=== PATIENT | female | born 1965 | race Caucasian/White ===

== ENCOUNTER 2017-11-21 07:31 | Day surgery (SDC) | payer OTHER ==
[~2017-11-21] VITALS: Ht 165.1 cm; Wt 69.4 kg
--- NOTE | ~2017-11-21 | OR ---
[facility] [address] [place] [address] Draft DATE OF OPERATION: 11/21/2017 SURGEON: Minesh Ortiz MD PREOPERATIVE DIAGNOSIS: Colon screening. POSTOPERATIVE DIAGNOSIS: Normal colon to cecum. PROCEDURE: Total colonoscopy to cecum. ANESTHESIA: Intravenous sedation, fentanyl 150 mcg, Versed 5 mg. INDICATION: This 52-year-old white woman is a patient Dr. Borja. She is referred for screening colonoscopy. She has never had a colonoscopy in the past. She has no family history of colon cancer and no symptoms of bleeding, diarrhea, or constipation. She understands the risks of bleeding, infection, and perforation related to colonoscopy and wished to proceed. FINDINGS: The prep was quite good. Complete colonoscopy was undertaken to the cecum without question. There was no sign of diverticular formation, colitis, or cancer or polyps. DESCRIPTION OF PROCEDURE: The patient was brought to the endoscopy suite and placed in lateral decubitus position and given intravenous sedation to the point of slurred speech and nystagmus. Digital rectal examination was normal. An Olympus video colonoscope was passed in the rectum and manipulated throughout the colon ultimately intubating the cecum itself. The ileocecal valve and appendiceal orifice were normal. The scope was withdrawn from that point and examination throughout undertaken showing no sign of polyps, diverticular formation, colitis, or cancer. Retroflex view was normal. The scope was removed. The patient was taken to recovery room in good condition. CONCLUDING DIAGNOSIS: PATIENT NAME: HARIKA CALDWELL OPERATIVE REPORT DATE OF : 67 REPORT #: [id number] PHYSICIAN: MINESH ORTIZ MD PCP: SAMI LEVY MD REPORT IS CONFIDENTIAL AND NOT TO BE RELEASED WITHOUT AUTHORIZATION [place] [id number] [place] [address] Draft Normal colon. PLAN: Recommend repeat colonoscopy in 10 years or sooner if symptoms including bleeding, diarrhea, or constipation. She will return to the ongoing care of Dr. Borja. MD DOMENICA Mcelroy/JENNAL /[id number] cc: Michael Borja MD Copies: MICHAEL BORJA MD ~ PATIENT NAME: HARIKA CALDWELL OPERATIVE REPORT DATE OF : 67 REPORT #: [id number] PHYSICIAN: MINESH ORTIZ MD PCP: SAMI LEVY MD REPORT IS CONFIDENTIAL AND NOT TO BE RELEASED WITHOUT AUTHORIZATION
[~2017-11-21 07:31] MED LIST: NORETHINDRONE0.35 MG PO
[2017-11-21] MEDS ORDERED: CLARITIN10 M2 PO (07:46)
--- NOTE | 2017-11-21 09:08 | NUR ---
11/21/17 0908 Barbara Browne 0905-PATIENT ARRIVED TO PACU ON 2L NC O2 SAT 99% WEANED TO RA. RR EVEN. PATIENT DROWSY EYES OPEN DENIES PAIN OR NAUSEA. ABDOMEN SOFT ENCOURAGED TO PASS FLATUS.
== END 2017-11-21 09:40 | disposition home or self-care (01) ==
LOC: OPS 07:31 → DS 07:31 → OPS 08:30
PROVIDERS: Surgery
PROC: 0DJD8ZZ Inspection of Lower Intestinal Tract, Via Natural or Artificial Opening Endoscopic (ICD-10-PCS; principal; 2017-11-21 08:30)
DX: Z12.11 Encounter for screening for malignant neoplasm of colon (principal); J45.909 Unspecified asthma, uncomplicated; Z88.2 Allergy status to sulfonamides
CPT/HCPCS: 99153; G0500; J2250; J3010; J7120

== ENCOUNTER 2022-06-24 07:40 | Day surgery (SDC) | payer OTHER ==
[~2022-06-24] VITALS: Ht 165.1 cm; Wt 65.5 kg
[~2022-06-24 07:40] MED LIST changes: +CLARITIN10 M2 PO
[2022-06-24] MEDS ORDERED: MULTIPLE VITAM1 EAC2 PO (08:34)
[2022-06-24] MEDS ORDERED: VITAMIN D350 MC3 PO (08:34)
[2022-06-24] MEDS ORDERED: FISH OIL 1,201200 MG PO (08:35)
[2022-06-24] MEDS ORDERED: CALCIUM 500 MG1 EAC5 PO (08:35)
[2022-06-24] MEDS ORDERED: MELATONIN3 MG PO (08:35)
[2022-06-24] MEDS ORDERED: PROBIOTIC1 EAC5 PO (08:35)
[2022-06-24] MEDS ORDERED: PSEUDOEPHEDRINE30 MG PO (08:36)
[2022-06-24 08:50] VITALS: BP 117/78
--- NOTE | 2022-06-24 11:20 | NUR ---
06/24/22 1120 Sheets,Candi 1048 PT ARRIVED TO PACU ON 6L VIA MASK, PT ASLEEP AND DECREASED BP NOTED. TECHNICAL PLANNER AWARE. 1052 BP MEDICAITON GIVEN PER BLUE SHEET. 1055 BP REMAINS LOW AND MEDICATION GIVEN PER BLUE SHEET. 1056 PT WAKES TO TACTILE STIMULI AND DENIES CONCERN. BP INCREASES. PT REORIENTED TO PACU AND O2 REMOVED. HOB INCREASED. 1105 PT SIPPING WATER AND DENIES NAUSEA. 1111 MD AT BEDSIDE TALKING TO PT. ALL QUESTIONS ANSWERED.
[2022-06-24 11:21] VITALS: BP 120/74
--- NOTE | 2022-06-25 10:49 | OR ---
[facility] [address], [place] [address] Signed DATE OF OPERATION: 06/24/2022 SURGEON: Yue Figueroa DO PREOPERATIVE DIAGNOSES: 1. Vaginal cuff dehiscence. 2. Incidentally noted leukopenia. POSTOPERATIVE DIAGNOSES: 1. Vaginal cuff dehiscence. 2. Incidentally noted leukopenia. PROCEDURE PERFORMED: Repair of vaginal cuff dehiscence. LAW REPORTER: Idalmis King DO ANESTHESIA: MAC. ESTIMATED BLOOD LOSS: 5 mL. FINDINGS: Partial approximately 80% thickness vaginal cuff dehiscence across the full length of the colpotomy was repaired with #0 Vicryl with excellent results. Good apical support. Normal external genitalia with normal clitoris, urethral meatus, bilateral Parmele's, and Bartholin's. Otherwise normal vagina. No other abnormalities noted. COMPLICATIONS: None. INDICATIONS: Mrs. Caldwell is a very pleasant 57-year-old female who presents who initially presented with postmenopausal bleeding. Hysteroscopy D and C was performed that demonstrated complex endometrial hypertrophy with atypia. She is sent to [facility] in [place], [place] for surgery approximately eight weeks ago. Surgery was uncomplicated and the patient reports that no malignancy was found. Her healing was normal and she was seen for an eight week postoperative exam earlier this week. Upon placing the speculum, it Electronically Signed By: YUE FIGUEROA DO (JD) 06/25/22 1049 PATIENT NAME: HARIKA CALDWELL OPERATIVE REPORT DATE OF : 67 REPORT #: [id number] PHYSICIAN: YUE FIGUEROA) PCP: SAMI LEVY MD REPORT IS CONFIDENTIAL AND NOT TO BE RELEASED WITHOUT AUTHORIZATION [facility] [address] [place], [place] [address] Signed was noted that the vaginal cuff was approximately 80% dehisced. Decision was made to recommend revision of vaginal cuff in the OR. Risks, benefits, and alternatives were discussed in detail with the patient. The patient understands and wishes to proceed with the procedure. DESCRIPTION OF PROCEDURE: The patient was taken to the operating room, where time-out was performed to confirm correct patient and correct procedure. MAC anesthesia was adequately established. The patient was prepped and draped in the dorsal lithotomy position with her feet in Yellofin stirrups. ICPs were on, running and no preoperative antibiotics were indicated. Islva catheter was inserted. A weighted speculum was placed in the vagina. The vaginal cuff was evaluated and again partial thickness vaginal cuff dehiscence noted across the full length of the colpotomy. A 0-Vicryl was placed at each corner without difficulty and these were used to provide traction. The colpotomy was examined and found to appear normal with normal vaginal tissue. This was then repaired using 0-Vicryl in a running locked suture. Excellent apical support and hemostasis was appreciated. No evidence of infection or hematoma/seroma. The vagina was irrigated and again found to be hemostatic. The patient was then taken to the PACU in good and stable condition. The patient with incidentally noted leukopenia with WBCs 4.4 today. Manual differential was ordered and pending. We will continue evaluation as an outpatient. Yue Figueroa DO JFavioW/MODL /[id number] Copies: ~ Electronically Signed By: YUE FIGUEROA DO (JD) 06/25/22 1049 PATIENT NAME: HARIKA CALDWELL OPERATIVE REPORT DATE OF : 67 REPORT #: [id number] PHYSICIAN: YUE FIGUEROA DO (JD) PCP: SAMI LEVY MD REPORT IS CONFIDENTIAL AND NOT TO BE RELEASED WITHOUT AUTHORIZATION
== END 2022-06-24 11:37 | disposition home or self-care (01) ==
LOC: OPS 07:40 → DS 07:40 → OPS 10:30 → DS 10:30 → OPS 11:37
PROVIDERS: ATTEND Obstetrics & Gynecology
DX: T81.31XA Disruption of external operation (surgical) wound, not elsewhere classified, initial encounter (principal); Y83.8 Other surgical procedures as the cause of abnormal reaction of the patient, or of later complication, without mention of misadventure at the time of the procedure; D72.819 Decreased white blood cell count, unspecified; Z88.2 Allergy status to sulfonamides; Z79.899 Other long term (current) drug therapy
CPT/HCPCS: 36415; 85007; 85025; 85027; 86850; 86900; 86901; J0131; J1100; J2001; J2704; J7121

== ENCOUNTER 2024-08-27 21:56 | Emergency (ER) | payer OTHER ==
[~2024-08-27] VITALS: Ht 165.1 cm; Wt 68.0 kg
[~2024-08-27 21:56] MED LIST changes: +CALCIUM 500 MG1 EAC5 PO; +FISH OIL 1,201200 MG PO; +MELATONIN3 MG PO; +MULTIPLE VITAM1 EAC2 PO; +PROBIOTIC1 EAC5 PO; +PSEUDOEPHEDRINE30 MG PO; +VITAMIN D350 MC3 PO
[2024-08-27] MEDS ORDERED: DEXAMETHASONE SOD PHOS 10 MG/ML VIAL IV ONE (22:15)
[2024-08-27] MEDS ORDERED: FAMOTIDINE 20 MG/ 2 ML VIAL IV ONE (22:15)
[2024-08-27] MEDS ORDERED: diphenhydrAMINE HCL 50 MG/ML VIAL IV ONE (22:15)
[2024-08-27] MEDS ORDERED: CETIRIZINE HCL 10 MG TAB PO ONE (22:15)
[2024-08-27] MEDS ORDERED: EPIPEN 2-P0.3 MG/0.3 IM (22:40)
[2024-08-27] MEDS ORDERED: methylPREDNISolone 4 MG HOME.PACK PO ONE (22:45)
[2024-08-27 22:57] VITALS: BP 129/84
== END 2024-08-27 23:06 | disposition home or self-care (01) ==
LOC: ED 21:56
DX: T78.40XA Allergy, unspecified, initial encounter (principal); R22.32 Localized swelling, mass and lump, left upper limb; R09.89 Other specified symptoms and signs involving the circulatory and respiratory systems; Z88.2 Allergy status to sulfonamides; Z91.048 Other nonmedicinal substance allergy status; Z91.038 Other insect allergy status; Z91.018 Allergy to other foods; Z79.899 Other long term (current) drug therapy
CPT/HCPCS: 96374; 96375; 99283-25; J1100; J1200